=== PATIENT | male | born 1985 | race Caucasian/White ===

== ENCOUNTER 2024-02-14 11:35 | Outpatient (CLI) | payer MEDICAID, SELFPAY | END 2024-02-14 11:36 | disposition home or self-care (01) | LOC: NFLDREF 02-15 06:05 | PROVIDERS: PCP Internal Medicine; Referring Provider Internal Medicine; Visit Provider Internal Medicine | DX: Z00.00 Encounter for general adult medical examination without abnormal findings (principal); I10 Essential (primary) hypertension; E78.5 Hyperlipidemia, unspecified; Z12.5 Encounter for screening for malignant neoplasm of prostate; Z13.9 Encounter for screening, unspecified | CPT/HCPCS: 80053; 80061; G0103 ==

== ENCOUNTER 2024-05-12 09:12 | Outpatient (CLI) | payer OTHER, SELFPAY ==
--- OUTSIDE RECORDS SUMMARY | 2024-05-15 13:00 | XMS_ITS | Clinical Summary ---
Author Organization [employer] [facility] & [facility] Address [place], [place] [address] Care Team Providers Care Rn Radiation Oncology Name Role Phone Pcp, No Primary Care Provider Unavailabl e Allergies No known active allergies Medications Medication Sig Dispensed Refills Start Date End Date Status azithromycin (ZITHROMAX) 250 mg tabletIndications:Br onchitis Take 500 mg (2 tabs) by mouth on day 1, then 250 mg (1 tab) daily for days 2-5. 6 tablet 0 06/04/2015 Active benzonatate (TESSALON PERLES) 100 mg capsuleIndications:B ronchitis Take one or two capsules by mouth every 8 hours as needed for cough 15 capsule 1 06/04/2015 Active Active Problems Problem Noted Date Diagnosed Date Rectal bleeding 09/05/2014 Routine medical exam 09/05/2014 Immunizations Name Administration Dates Next Due Tdap 02/03/2016 Family History Medical History Relation Name Comments Good Health Father Hypertension Father Good Health Mother rheumatoid arth ritis Heart Disease Paternal Grandfather Hypertension Paternal Grandfather Relation Name Status Comments Father Alive Mother Alive Paternal Grandfather Social History Tobacco Use Types Packs/Day Years Used Date Smoking Tobacco: Never Tobacco Cessation:Counseling Given: Yes Alcohol Use Standard Drinks/Week Comments Yes 0 (1 standard drink = 0.6 oz pur e alcohol) occasional Sex and Gender Information Value Date Recorded Sex Assigned at Not on file Gender Identity Not on file Sexual Orientation Not on file Obstetrics History Last Filed Vital Signs Vital Sign Reading Time Taken Comments Blood Pressure 138/80 02/14/2016 8:29 AM CDT Pulse 84 02/14/2016 8:29 AM CDT Temperature 36.8 ??C (98.3 ??F) 02/14/2016 8:29 AM CD T Respiratory Rate - - Oxygen Saturation 98% 02/14/2016 8:29 AM CDT Inhaled Oxygen Concentration - - Weight 83 kg (183 lb) 02/14/2016 8:29 AM CDT Height 185 cm (6' 0.84) 06/04/2015 3:45 PM CDT Body Mass Index 24.25 06/04/2015 3:45 PM CDT Plan of Treatment Health Maintenance Due Date Last Done Comments Depression screening for age 12+ 1998 HIV for age 15-65 2001 BMI (ht and wt on same day) for age 18+ 2004 Hepatitis C screening for ag e 18-79 2004 Lipids for age 35-44 2021 09/04/2014 COVID-19 vaccine series (2022- season) 2023 Influenza for age 9-49 06/01/2024 Tetanus booster 02/02/2026 02/03/2016 Tdap Completed 02/03/2016 Pneumococcal series for age 6-64 Aged Out No longer eligible based on patient's age to complete this topic Procedures Procedure Name Priority Date/Time Associated Diagnosis Comments LIPID PANEL W REFLEX MEASURED LDL Routine 09/04/2014 1:54 PM [employer] Screening for ischemic heart disease from Last 3 Months or Most Recently Relevant to Health Maintenance Results * (ABNORMAL) LIPID PANEL W REFLEX MEASURED LDL (09/04/2014 1:54 PM [employer]) CHOLESTEROL,TOTAL 213(H) 100 - 199 mg/dL 09/04/2014 2:35 PM [employer] [facility] TRIGLYCERIDES 88 <150 mg/dL 09/04/2014 2:35 PM [employer] [facility] HDL CHOLESTEROL 52 >40 mg/dL 4 2:35 PM [employer] [facility] NON-HDL CHOLESTEROL 161(H) <145 mg/dl 09/04/2014 2:35 PM [employer] [facility] CHOL/HDL RATIO 4.10 <4.50 09/04/2014 2:35 PM [employer] [facility] LDL CHOLESTEROL 143(H) <=130 mg/dL 09/04/2014 2:35 PM [employer] [facility] PATIENT STATUS NON-FASTI NG 09/04/2014 2:35 PM [employer] [facility] Blood specimen (specimen) BLOOD SPECIMEN / Unknown Venipuncture / Unknown 09/04/2014 1:54 PM [employer] 09/04/2014 1:54 PM [employer] Silvestre Lopez MD CHEMISTRY [facility] [address] [place] [address], from Last 3 Months or Most Recently Relevant to Health Maintenance Care Teams Rn Radiation Oncology Relationship Specialty Start Date End Date Pcp, No . PCP - General 09/04/14
== END 2024-05-12 09:13 | disposition home or self-care (01) ==
LOC: NFLDREF 05-15 12:57
PROVIDERS: PCP Internal Medicine; Referring Provider Internal Medicine; Visit Provider Internal Medicine
DX: E78.5 Hyperlipidemia, unspecified (principal); I10 Essential (primary) hypertension
CPT/HCPCS: 80053; 80061

== ENCOUNTER 2025-02-18 09:08 | Outpatient (CLI) | payer OTHER, SELFPAY | END 2025-02-18 09:09 | disposition home or self-care (01) | PROVIDERS: PCP Internal Medicine; Visit Provider Internal Medicine | DX: E78.5 Hyperlipidemia, unspecified (principal); I10 Essential (primary) hypertension | CPT/HCPCS: 80053; 80061 ==